=== PATIENT | female | born 2000 | race Caucasian/White ===

== ENCOUNTER 2025-05-07 13:45 | Emergency (ER) | payer OTHER ==
[~2025-05-07] VITALS: Ht 160 cm; Wt 64.5 kg
[2025-05-07 14:01] VITALS: BP 117/73; PULSE 100; RESP 20; TEMP 98.7; O2SAT 99
== END 2025-05-07 14:34 | disposition left against medical advice (07) ==
LOC: ER 13:45
DX: H92.01 Otalgia, right ear (principal); Z53.21 Procedure and treatment not carried out due to patient leaving prior to being seen by health care provider